=== PATIENT | female | born 1980 | race Caucasian/White ===

== ENCOUNTER 2017-10-30 15:25 | Observation (INO) ==
[2017-10-30] MEDS ORDERED: 0.9 % Sodium Chloride 500 ML IVC ONE (16:32)
--- NOTE | 2017-10-30 16:46 | Emergency Department Note ---
Disposition Clinical Impression: Fatigue, Chest pain Disposition: Admitted As Inpatient Condition: Good Chest Pain HPI - General Chief Complaint: ED Chest Pain Stated Complaint: chest pain Time Seen by Provider: 10/30/17 16:10 Source: patient Mode of arrival: ambulatory Limitations: no limitations Vital Signs Reviewed: Yes Nursing Notes Reviewed: Yes - History of Present Illness HPI Narrative: 36-year-old female presenting to the ER for a one-month history of "fluttering" which has recently been associated with tachycardia, shortness of breath, flushing and diaphoresis for the past 3 days. The patient describes her chest pain as being substernal pressure, nonradiating, 6 out of 10 on the pain scale, and constant in nature. The patient admits to past medical history of anxiety disorder, as well as asthma. The patient states that she stopped smoking 4 years ago. Her family history includes coronary artery disease in her mother and aunt both in their 40s and 50s. As well as a history of CVA and maternal grandmother. Severity scale (1-10): 4 - Related Data Home Medications Medication Instructions Recorded Confirmed Cyanocobalamin (B-12) [Vitamin B12] 1,000 mcg IM QMONTH 10/30/17 10/30/17 Cyclobenzaprine [Flexeril] 10 mg PO TID PRN 10/30/17 10/30/17 Etonogestrel/Ethinyl Estradiol 1 each VG QMONTH 10/30/17 10/30/17 [Nuvaring Vaginal Ring] Fluticasone Propionate Nasal 1 spr NS DAILY 10/30/17 10/30/17 [Flonase] Fluticasone Propionate [Flovent 1 puff IH DAILY 10/30/17 10/30/17 Hfa] Omeprazole [PriLOSEC] 40 mg PO DAILY 10/30/17 10/30/17 SUMAtriptan Succinate [Imitrex] 100 mg PO DAILY PRN 10/30/17 10/30/17 clonazePAM [Klonopin] 1 mg PO BID PRN 10/30/17 10/30/17 Allergies Allergy/AdvReac Type Severity Reaction Status Date / Time No Known Allergies Allergy Verified 01/16/17 18:40 Review of Systems: Constitutional: Patient admits to episodes of flushing and diaphoresis. She admits to fatigue. Patient denies syncope, HEENT: The patient admits to headaches, which are chronic in nature and are currently being treated with Imitrex. The patient admits to blurred vision Cardiac: Patient admits to mid substernal nonradiating chest pressure, 6 out of 10 on the pain scale. Patient admits to tachycardia with symptoms of "fluttering". Pulmonary: The patient admits to increased dyspnea, but denies cough or hemoptysis. Abdominal: Patient denies abdominal pain, denies nausea vomiting, hematochezia, melena. Genitourinary: Patient denies hematuria Psychiatric: The patient admits to a history of anxiety disorder for which she takes clonazepam. All systems ED: reviewed and negative except as stated. 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 Cardiac: Rhythm and rate are regular, S1 and S2 auscultated without evidence of S3 or S4. There are no murmurs rubs or clicks appreciated. There is no carotid bruit noted. Pulmonary: Lungs are clear to auscultation bilaterally, there is no evidence of wheezing or stridor appreciated. Abdomen: Abdomen is round, soft to palpation, nonrigid, nontender, nondistended. There is no aortic bruit noted, palpable mass, ascites, or organomegaly. Psychiatric: Mood and affect are normal, patient appears anxious. Extremities: There is clubbing noted in her extremities, no cyanosis, or edema noted. Integumentary: Patient appears to be mildly diaphoretic skin is otherwise warm, intact, there is no pallor, erythema, or rash noted. - General Limitations: no limitations General appearance: alert - Head Head exam: atraumatic, normocephalic - Eye Eye exam: Present: PERRL, EOMI. Absent: scleral icterus, conjunctival injection , nystagmus - Neck Neck exam: Present: trachea midline - Cardiovascular Cardiovascular exam: Absent: JVD Course Course Narrative: Patient presentation in conjunction with family history is concerning for acute coronary syndrome. Patient will receive standard blood work in addition to EKG , chest x-ray and troponins. - Consultations Consultation #1: Dr. Diallo Time: 18:14 Vital Signs Temperature 98.0 F 10/30/17 15:44 Pulse Rate 88 10/30/17 15:44 Respiratory Rate 14 10/30/17 15:44 Blood Pressure 166/102 10/30/17 15:44 O2 Sat by Pulse Oximetry 98 10/30/17 15:44 Temperature 98.2 F 10/30/17 21:14 Pulse Rate 74 10/30/17 21:14 Respiratory Rate 16 10/30/17 21:14 Blood Pressure 149/103 10/30/17 21:14 O2 Sat by Pulse Oximetry 97 10/30/17 21:14 Oxygen Delivery Oxygen Delivery Room Air Chest Pain - MDM Narrative Medical decision making narrative: The patient will be admitted as an inpatient for further cardiac workup and treatment. Dr. Diallo consulted for inpatient admission. - Lab Data Result diagrams: 10/30/17 16:55 10/30/17 16:55 Lab Results 10/30/17 10/30/17 10/30/17 Range/Units 16:55 16:55 16:55 WBC 5.7 (4.3-11.1) K/mcL RBC 4.22 (3.82-4.97) M/mcL Hgb 13.5 (11.5-15.4) g/dL Hct 38.8 (35.3-44.9) % MCV 91.9 (83.0-100.0) fL MCH 32.0 (28.0-33.3) pg MCHC 34.8 (31.6-35.5) g/dL RDW 12.0 (11.5-14.5) % Plt Count 162 (140-400) K/mcL MPV 10.7 (9.4-12.4) fL Immature Gran % 0.2 (0-4) % Seg Neutrophils % 62.9 % Lymphocytes % 29.7 % Monocytes % 6.3 % Eosinophils % 0.4 % Basophils % 0.5 % Neutrophils # 3.6 (1.6-8.9) K/mcL Lymphocytes # 1.7 (0.6-4.6) K/mcL Monocytes # 0.4 (0.0-1.3) K/mcL Eosinophils # 0.0 (0.0-0.6) K/mcL Basophils # 0.0 (0.0-0.2) K/mcL PT 11.3 (9.4-12.1) Seconds INR 1.0 APTT 30.3 (26.0-36.0) Seconds Sodium 138 (136-145) mEq/L Potassium 3.5 (3.5-5.1) mEq/L Chloride 106 (98-107) mEq/L Carbon Dioxide 23 (23-29) mEq/L BUN 11 (6-20) mg/dL Creatinine 0.68 (0.60-1.20) mg/dL Est GFR ( Amer) > 60 (> 60) Est GFR (Non-Af Amer) > 60 (> 60) BUN/Creatinine Ratio 16 (6-26) Glucose 85 (70-105) mg/dL Calculated Osmolality 285 (280-300) Calcium 9.2 (8.6-10.3) mg/dL Troponin I < 0.03 (< 0.04) ng/mL - EKG Data EKG results narrative: Patient EKG shows sinus rhythm with a ventricular rate of 84 bpm DC interval of 150 ms QRS duration of 80 ms QT/QTc interval 352/392 ms there are no ST segment elevations or depressions, T-wave inversions, or any other signs of ischemic change. There is no evidence of Uippd-Djzolykwy-Bzqaj syndrome. Heart Score - Score History: Moderately Suspicious EKG: Normal Age: Less than 45 Risk Factors: Equal/Greater than 3 risk factor or history of atherosclerotic disease Troponin: Less than normal limit HEART Score Total: 3
[2017-10-30 17:09] LABS: Basophils % 0.5 %; Eosinophils % 0.4 %; Hematocrit 38.8 % (35.3-44.9); Hemoglobin 13.5 g/dL (11.5-15.4); Immature Granulocytes % 0.2 % (0-4); Lymphocytes # 1.7 K/mcL (0.6-4.6); Lymphocytes % 29.7 %; Mean Corpuscular HGB Conc 34.8 g/dL (31.6-35.5); Mean Corpuscular Volume 91.9 fL (83.0-100.0); Mean Platelet Volume 10.7 fL (9.4-12.4); Monocytes # 0.4 K/mcL (0.0-1.3); Monocytes % 6.3 %; Neutrophils # 3.6 K/mcL (1.6-8.9); Platelet Count 162 K/mcL (140-400); Red Blood Count 4.22 M/mcL (3.82-4.97); Segmented Neutrophils % 62.9 %
[2017-10-30 17:14] LABS: Prothrombin Time 11.3 Seconds (9.4-12.1)
[2017-10-30 17:17] LABS: Activated Partial Thrombo Time 30.3 Seconds (26.0-36.0)
[2017-10-30 17:33] LABS: BUN/Creatinine Ratio 16 (6-26); Blood Urea Nitrogen 11 mg/dL (6-20); Calcium 9.2 mg/dL (8.6-10.3); Carbon Dioxide 23 mEq/L (23-29); Chloride 106 mEq/L (98-107); Glucose 85 mg/dL (70-105); Osmolality,Calculated 285 (280-300); Potassium 3.5 mEq/L (3.5-5.1); Sodium 138 mEq/L (136-145); eGFR For African Americans > 60 (> 60); eGFR For Non-African Americans > 60 (> 60)
[2017-10-30 17:34] LABS: Troponin I < 0.03 ng/mL (< 0.04)
--- NOTE | 2017-10-30 17:54 | Emergency Department Note ---
Disposition Clinical Impression: Fatigue, Chest pain Disposition: Admitted As Inpatient Condition: Good Referrals: Pancho Cordoba MD [Primary Care Provider] - Forms: ED Satisfaction Letter General Adult HPI - General Chief complaint: ED Chest Pain Stated complaint: chest pain Time Seen by Provider: 10/30/17 16:10 Source: patient Mode of arrival: ambulatory Limitations: no limitations - History of Present Illness Pain Scale: 4 - Related Data Previous Rx's Medication Instructions Recorded Ibuprofen [Motrin] 600 mg PO Q8HR PRN #15 tab 01/16/17 Metaxalone [Skelaxin] 800 mg PO TID #15 tablet 01/16/17 Allergies Allergy/AdvReac Type Severity Reaction Status Date / Time No Known Allergies Allergy Verified 01/16/17 18:40 Eyes: Reports: vision change (The patient describes some blurring of vision related to her chronic anxiety and headaches) Past Medical History - Past Medical History Medical history: Reports: asthma Psychiatric history: Reports: anxiety 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 history - Social History Smoking Status: Former smoker Smokeless Tobacco Status: No Alcohol use: Reports: occasionally Drug use: Reports: none Physical Exam - General Limitations: no limitations General appearance: alert Course Vital Signs Temperature 98.0 F 10/30/17 15:44 Pulse Rate 88 10/30/17 15:44 Respiratory Rate 14 10/30/17 15:44 Blood Pressure 166/102 10/30/17 15:44 O2 Sat by Pulse Oximetry 98 10/30/17 15:44 Temperature 98.0 F 10/30/17 15:44 Pulse Rate 88 10/30/17 15:44 Respiratory Rate 14 10/30/17 15:44 Blood Pressure 166/102 10/30/17 15:44 O2 Sat by Pulse Oximetry 98 10/30/17 15:44 Oxygen Delivery Oxygen Delivery Room Air Medical Decision Making - Lab Data Result diagrams: 10/30/17 16:55 10/30/17 16:55 Lab Results 10/30/17 10/30/17 10/30/17 Range/Units 16:55 16:55 16:55 WBC 5.7 (4.3-11.1) K/mcL RBC 4.22 (3.82-4.97) M/mcL Hgb 13.5 (11.5-15.4) g/dL Hct 38.8 (35.3-44.9) % MCV 91.9 (83.0-100.0) fL MCH 32.0 (28.0-33.3) pg MCHC 34.8 (31.6-35.5) g/dL RDW 12.0 (11.5-14.5) % Plt Count 162 (140-400) K/mcL MPV 10.7 (9.4-12.4) fL Immature Gran % 0.2 (0-4) % Seg Neutrophils % 62.9 % Lymphocytes % 29.7 % Monocytes % 6.3 % Eosinophils % 0.4 % Basophils % 0.5 % Neutrophils # 3.6 (1.6-8.9) K/mcL Lymphocytes # 1.7 (0.6-4.6) K/mcL Monocytes # 0.4 (0.0-1.3) K/mcL Eosinophils # 0.0 (0.0-0.6) K/mcL Basophils # 0.0 (0.0-0.2) K/mcL PT 11.3 (9.4-12.1) Seconds INR 1.0 APTT 30.3 (26.0-36.0) Seconds Sodium 138 (136-145) mEq/L Potassium 3.5 (3.5-5.1) mEq/L Chloride 106 (98-107) mEq/L Carbon Dioxide 23 (23-29) mEq/L BUN 11 (6-20) mg/dL Creatinine 0.68 (0.60-1.20) mg/dL Est GFR ( Amer) > 60 (> 60) Est GFR (Non-Af Amer) > 60 (> 60) BUN/Creatinine Ratio 16 (6-26) Glucose 85 (70-105) mg/dL Calculated Osmolality 285 (280-300) Calcium 9.2 (8.6-10.3) mg/dL Troponin I < 0.03 (< 0.04) ng/mL Attestation Statement - Attestation Attestation: I examined this patient and my medical decision-making was reviewed with the Resident Physician. I agree with the documented findings, disposition and treatment plan as described except to the extent set forth below. 36 yo F here for chest pain/pressure and just not feeling well x 4 days with increasing fatigue. fam hx of early CAD. lab work ok ekg ok cxr neg pt does not feel comfortable going home will admit for stress test and possible echo in am vss but has had HTN here in ER which is new for her she states.
--- NOTE | 2017-10-30 22:41 | Internal Med History&Physical ---
Date of Encounter: 10/31/17 Time of Encounter: 22:41 Internal Medicine - H&P: HPI Chief complaint: CP History of present illness: Ms. Corona is a 36 year old female with a past medical history of anxiety and asthma who presenting to the ER for a one-month history of "fluttering" which has recently been associated with tachycardia, shortness of breath, flushing and diaphoresis for the past 3 days. The patient describes her chest pain as being substernal pressure like in character, nonradiating, 6 out of 10 in intensity, no alleviating factors or aggravating factors. The patient states that she stopped smoking 4 years ago. Her family history includes coronary artery disease in her mother and aunt both in their 40s and 50s. the patient was evaluated with the E< EKG revealed no significant ST T wave changes, troponin was negative. Given the strong past medical history of coronary artery disease patient was admitted for further evaluation and management. Past Med Surg Social Fam HX - Past Medical History Medical history: asthma Psychiatric history: anxiety - Past Surgical History Additional surgical history: gastric sleeve - Social History Smoking Status: Former smoker Smokeless Tobacco Status: No Alcohol use: occasionally Drug use: none - Family History Mother Maternal Grandmother History Unknown: Yes Hx Family Cardiac Disorders: Yes Mother Age: 62 Hx Family Cardiac Disorders: Yes (triple bypass 2018) Hx Family Endocrine Disorder: Yes (diabetes) Internal Medicine - H&P: Meds Cyanocobalamin (B-12) [Vitamin B12] 1,000 mcg IM QMONTH 10/30/17 [History] Cyclobenzaprine [Flexeril] 10 mg PO TID PRN 10/30/17 [History] Etonogestrel/Ethinyl Estradiol [Nuvaring Vaginal Ring] 1 each VG QMONTH [History] Fluticasone Propionate Nasal [Flonase] 1 spr NS DAILY 10/30/17 [History] Fluticasone Propionate [Flovent Hfa] 1 puff IH DAILY 10/30/17 [History] Omeprazole [PriLOSEC] 40 mg PO DAILY 10/30/17 [History] SUMAtriptan Succinate [Imitrex] 100 mg PO DAILY PRN 10/30/17 [History] clonazePAM [Klonopin] 1 mg PO BID PRN 07/12/18 [History] 3 Allergy/AdvReac Type Severity Reaction Status Date / Time No Known Allergies Allergy Verified 01/16/17 18:40 All Systems PM: A 10-system review of systems was performed and is negative for pertinent findings except as documented above in the HPI. - Constitutional Constitutional: no chills, no fever(s), no night sweats - Cardiovascular Cardiovascular ROS IM: chest pain, diaphoresis, dyspnea, no lightheadedness, no palpitations, no syncope - Respiratory Respiratory: dyspnea, no cough, no wheezing, no excessive phlegm production - Gastrointestinal Gastrointestinal: no abdominal pain, no diarrhea, no hematemesis, no hematochezia, no melena, no nausea, no vomiting - Neurological Neurological ROS: no confusion, no convulsions, no focal weakness, no numbness, no tingling, no tremor(s) - Constitutional Vitals: Temp Pulse Resp BP Pulse Ox 98.2 F 74 16 149/103 97 10/30/17 21:14 10/30/17 21:14 10/30/17 21:14 10/30/17 21:14 10/30/17 21:14 General appearance: Present: A&O X 3 - Head Head exam: Present: atraumatic, normocephalic - Neck Neck exam general surgery: Present: supple, trachea midline. Absent: lymphadenopathy - Respiratory Respiratory exam: Present: CTAB. Absent: accessory muscle use, rales, rhonchi, wheezes - Cardiovascular Cardiovascular exam: Present: RRR, +S1, +S2. Absent: diastolic murmur, gallop, rubs, systolic murmur - Extremities Exam Extremities exam: Present: warm, radial pulses palpable and symmetrical. Absent : calf tenderness, cyanotic, pedal edema Internal Med - H&P Results - Labs CBC & Chem 7: 10/31/17 05:59 10/31/17 05:59 - Assessment and plan (1) Chest pain Current Visit: Yes Status: Acute Assessment and plan: - Chest pain DD *CAD *Muskuloskeletal CP - myofascial strain, costochondritis *GERD *Esophageal spasm CAD Risk : FMH PLAN: - cardiac enzymes x 2 q 8 hr - EKG now and in AM - ASA - O2 by NC to keep SpO2 greater than 92% - UA - CBCD, BMP in AM - Fasting lipids - Tylenol 650 mg PO q 4-6 hr PRN headache - 2D Echo - Stress test in AM Qualifiers: Qualified Code(s): R07.9 - Chest pain, unspecified (2) Asthma Current Visit: Yes Status: Acute Assessment and plan: we will continue home medications. Qualifiers: Qualified Code(s): J45.909 - Unspecified asthma, uncomplicated (3) Anxiety Current Visit: Yes Status: Acute Assessment and plan: we'll continue home medications (4) DVT prophylaxis Current Visit: Yes Status: Acute Assessment and plan: SCDs - Time Spent With Patient Total time spent is greater than 50% in coordination of care (as documented) at patient's floor/unit and/or counseling patient:
[2017-10-30] MEDS ORDERED: Naloxone 0.4 MG/ML INJ IVP PRN (23:09)
[2017-10-30] MEDS ORDERED: *HR* HYDROcodone/Acet 5/325 mg TABLET PO PRN (23:09)
[2017-10-30] MEDS ORDERED: *HR* OxyCODONE Immed Rel 5 MG TABLET PO PRN (23:09)
[2017-10-30] MEDS ORDERED: Ondansetron ODT 4 MG TAB.RAPDIS SL PRN (23:09)
[2017-10-30] MEDS ORDERED: Acetaminophen 325 MG TABLET PO PRN (23:09)
[2017-10-30] MEDS ORDERED: clonazePAM 1 MG TABLET PO PRN (23:12)
[2017-10-30] MEDS ORDERED: SUMAtriptan succinate 50 MG TABLET PO PRN (23:12)
[2017-10-30] MEDS ORDERED: NUVARING VG SCH (23:15)
[2017-10-31 00:07] LABS: Chol/HDL Ratio 5.4 (0-4.9)
[2017-10-31 06:47] LABS: Basophils % 0.6 %; Eosinophils # 0.1 K/mcL (0.0-0.6); Eosinophils % 1.3 %; Hematocrit 38.8 % (35.3-44.9); Immature Granulocytes % 0.2 % (0-4); Lymphocytes # 2.1 K/mcL (0.6-4.6); Lymphocytes % 40.8 %; Mean Corpuscular HGB Conc 33.5 g/dL (31.6-35.5); Mean Corpuscular Hemoglobin 31.3 pg (28.0-33.3); Mean Corpuscular Volume 93.5 fL (83.0-100.0); Mean Platelet Volume 10.9 fL (9.4-12.4); Monocytes # 0.4 K/mcL (0.0-1.3); Monocytes % 7.3 %; Neutrophils # 2.6 K/mcL (1.6-8.9); Platelet Count 159 K/mcL (140-400); Red Blood Count 4.15 M/mcL (3.82-4.97); Red Cell Distribution Width 12.4 % (11.5-14.5); Segmented Neutrophils % 49.8 %
[2017-10-31 06:56] LABS: Prothrombin Time 11.1 Seconds (9.4-12.1)
[2017-10-31 07:03] LABS: Alanine Aminotransferase 11 Units/L (7-52); Albumin 3.6 g/dL (3.5-5.7); Albumin/Globulin Ratio 1.6 (1.1-2.2); Alkaline Phosphatase 52 Units/L (34-104); Aspartate Amino Transferase 12 Units/L (13-39); BUN/Creatinine Ratio 17 (6-26); Bilirubin,Total 0.4 mg/dL (0.3-1.0); Blood Urea Nitrogen 10 mg/dL (6-20); Calcium 8.8 mg/dL (8.6-10.3); Carbon Dioxide 23 mEq/L (23-29); Chloride 115 mEq/L (98-107); Globulin 2.2 g/dL (2.4-3.5); Glucose 92 mg/dL (70-105); Osmolality,Calculated 269 (280-300); Phosphorous 3.9 mg/dL (2.7-4.5); Potassium 3.4 mEq/L (3.5-5.1); Sodium 130 mEq/L (136-145); Total Protein 5.8 g/dL (6.4-8.9); Troponin I < 0.03 ng/mL (< 0.04); eGFR For African Americans > 60 (> 60); eGFR For Non-African Americans > 60 (> 60)
[2017-10-31 08:10] LABS: Bilirubin,Urine Negative (Negative); Blood,Urine Large (Negative); Color,Urine Red (Yellow); Glucose,Urine (UA) Normal (Normal); Ketones,Urine Trace mg/dL (Negative); Leukocyte Esterase,Urine Small (Negative); Nitrite,Urine Negative (Negative); Protein,Urine 30 mg/dL (Neg-Trace); Specific Gravity,Urine 1.018 (1.010-1.025); Urobilinogen,Urine Normal (Normal)
[2017-10-31 08:11] LABS: Bacteria,Urine None Seen per hpf (None-Few); Hyaline Casts,Urine None Seen per lpf (None-Few); RBC,Urine TNTC per hpf (0-3); Squamous Epithelial Cell,Urine Many per lpf (None-Few)
[2017-10-31 08:16] LABS: Clarity,Urine Slightly Hazy (Clear)
[2017-10-31] MEDS ORDERED: Cyanocobalamin (B-12) 1,000 MCG/ML VIAL IM SCH (09:00)
[2017-10-31] MEDS ORDERED: Fluticasone Propionate Nasal 50 MCG/SPRAY BOTTLE NS SCH (09:00)
[2017-10-31] MEDS ORDERED: Beclomethasone 40mcg MDI IH SCH (10:00)
[2017-10-31 12:38] VITALS: BP 147/96
--- NOTE | 2017-10-31 14:16 | Discharge Summary ---
<Urmila Black - Last Filed: 10/31/17 14:42> - NOTES TO OUTPATIENT PROVIDER Notes to Outpatient Provider: Issues blood pressure will need to be monitored as outpatient-for possible initiation of blood pressure medications. Underwent cardiac stress test which was negative for ischemia Date of Encounter: 10/31/17 Time of Encounter: 14:14 - Discharge Diagnosis (1) Chest pain Priority: Primary Status: Acute Qualifiers: Chest pain type: unspecified Qualified Code(s): R07.9 - Chest pain, unspecified (2) Asthma Priority: Secondary Status: Acute Qualifiers: Asthma severity: unspecified severity Asthma persistence: unspecified Asthma complication type: unspecified Qualified Code(s): J45.909 - Unspecified asthma, uncomplicated (3) Anxiety Priority: Secondary Status: Acute Hospital course: Ms. Corona is a 36 year old female past medical history of asthma anxiety gastric sleeve with GERD presented to the ER after experiencing one month of "fluttering "sensation chest with associated symptoms of tachycardia shortness of breath diaphoresis for the past 3 days. She has also been experiencing substernal chest pain nonradiating no alleviating or aggravating factors. EKG with no ST-T wave abnormalities troponin was negative 3. She was admitted for further evaluation she underwent a cardiac stress test this a.m. which was negative for any ischemia. She did have some episodes of elevated blood pressure throughout her admission however patient was very upset and at times crying. She voiced concerned about not having a financial consultant assess her as well as she was not happy that nurse practitioner was providing care. Advised the patient that if her stress test or any test are abnormal she will see cardiology as outpatient She also expressed concern that a physician has not seen her since she was in the ED. I explained that the admitting hospitalist will sometimes see patient's in the ED prior to arriving to the floor and that they don't always see patient on floor. She expressed that she did not sleep well and did not like her food. I informed the patient I would discuss with my director and have him follow up with her concerns. Nursing staff reports that she has been very agitated and upset with nursing care. Dr Mosqueda notified of patient's concerns- he I reviewed the case and he did speak with the patient. Dr Mosqueda at bedside as well as myself- He did review results of stress test and answered the patient's questions. He advised patient to follow up with PCP as outpatient to monitor BP. Patient verbalized understanding. She is hemodynamically stable and ready for discharge . Discharge discussed with: patient - Time Spent with Patient Total time spent providing and/or coordinating discharge services: - Discharge Medications Home Medications: Cyanocobalamin (B-12) [Vitamin B12] 1,000 mcg IM QMONTH 10/30/17 [History] Cyclobenzaprine [Flexeril] 10 mg PO TID PRN 10/30/17 [History] Etonogestrel/Ethinyl Estradiol [Nuvaring Vaginal Ring] 1 each VG QMONTH [History] Fluticasone Propionate Nasal [Flonase] 1 spr NS DAILY 10/30/17 [History] Fluticasone Propionate [Flovent Hfa] 1 puff IH DAILY 10/30/17 [History] Omeprazole [PriLOSEC] 40 mg PO DAILY 10/30/17 [History] SUMAtriptan Succinate [Imitrex] 100 mg PO DAILY PRN 10/30/17 [History] clonazePAM [Klonopin] 1 mg PO BID PRN 10/30/17 [History] Allergies/Adverse Reactions: 3 Allergy/AdvReac Type Severity Reaction Status Date / Time No Known Allergies Allergy Verified 01/16/17 18:40 Date of admission: 10/30/17 19:36 Primary care physician: Pancho Cordoba MD Discharging clinician: Urmila Black Anticipated date of discharge: 10/31/17 - Constitutional Vitals: Temp Pulse Resp BP Pulse Ox 97.9 F 67 18 147/96 96 10/31/17 12:38 10/31/17 12:38 10/31/17 12:38 10/31/17 12:38 10/31/17 12:38 General appearance: Present: A&O X 3 - Head Head exam: Present: atraumatic, normocephalic - Eye Eye exam: Present: PERRL, conjuntiva pink, sclera anicteric Pupils: Present: PERRL - Neck Neck exam general surgery: Present: supple, trachea midline. Absent: lymphadenopathy - Respiratory Respiratory exam: Present: CTAB. Absent: accessory muscle use, rales, rhonchi, wheezes - Cardiovascular Cardiovascular exam: Present: RRR, +S1, +S2. Absent: diastolic murmur, gallop, rubs, systolic murmur - GI/Abdominal GI/Abdominal exam: Present: normal bowel sounds, soft, no peritoneal signs. Absent: distended, tenderness - Extremities Exam Extremities exam: Present: warm, radial pulses palpable and symmetrical. Absent : calf tenderness, cyanotic, pedal edema - Neurological Exam Neurological exam: Present: CN II-XII intact, oriented X3, no focal deficits. Absent: pronater drift, facial droop, speech deficit - Patient Status Disposition: Home, Self-Care Condition: Good Functional capacity at discharge: independent ambulation Overall status at discharge: patient is back to baseline - Discharge Instructions Instructions: Chest Pain (DC) Follow Up With: Pancho Cordoba MD [Primary Care Provider] - 11/03/17 6:00 pm Forms: Work/School Release - Diet and Activity Activity: increase activity as tolerated Diet: advance to your usual diet <Reynaldo Mosqueda - Last Filed: 10/31/17 18:03> Date of Encounter: 10/31/17 - Discharge Diagnosis (1) Chest pain Status: Acute Qualifiers: Chest pain type: unspecified Qualified Code(s): R07.9 - Chest pain, unspecified (2) Asthma Status: Acute Qualifiers: Asthma severity: unspecified severity Asthma persistence: unspecified Asthma complication type: unspecified Qualified Code(s): J45.909 - Unspecified asthma, uncomplicated (3) Anxiety Status: Acute Hospital course: Ms. Corona is a 36 year old female - Time Spent with Patient Total time spent providing and/or coordinating discharge services: Date of admission: 10/30/17 19:36 Primary care physician: Pancho Cordoba MD - Constitutional Vitals: Temp Pulse Resp BP Pulse Ox 97.9 F 67 18 147/96 96 10/31/17 12:38 10/31/17 12:38 10/31/17 12:38 10/31/17 12:38 10/31/17 12:38 - Attending Attestation I saw and evaluated the patient at bedside. I have reviewed the DC SUmmary note obtained and documented by the CUSTOM PROTECTION OFFICER and personally participated in the reed components. I have discussed the case and management of the patient's care. I agree with the findings and plan of care.The following comments revise or confirm relevant reed components of their note. Chest pain Ruled out for ACS- Negative stress tesr SIgnificant Anxiety issues Borderline BP- asked to maintain a diary and f/u w PCP office - may need low dose BB outpatient GERD as well- continue PPI Rest as per MINER ASSISTANT documentation
--- NOTE | 2017-10-31 18:10 | Electrocardiograph Report ---
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
== END 2017-10-31 15:14 | disposition home or self-care (01) ==
LOC: 3BNU 15:25 → EMEROO 15:25 → 3BNU 20:41
PROVIDERS: ADMIT Internal Medicine Nephrology; ATTEND Internal Medicine Nephrology